=== PATIENT | female | born 1985 | race African-American/Black ===

== ENCOUNTER 2023-01-13 16:27 | Emergency (ER) | payer OTHER ==
[~2023-01-13] VITALS: Ht 167.6 cm; Wt 170.1 kg
[2023-01-13] MEDS ORDERED: COZAAR25 MG PO (16:36)
[2023-01-13] MEDS ORDERED: MOTRIN IB200 M1 (16:36)
[2023-01-13] MEDS ORDERED: MEGESTROL ACETA40 MG PO (16:36)
== END 2023-01-13 17:34 | disposition home or self-care (01) ==
LOC: ER 16:27
DX: R07.89 Other chest pain (principal)